=== PATIENT | female | born 1935 | race Caucasian/White ===

== ENCOUNTER 2021-06-17 11:05 | Emergency (ER) | payer OTHER ==
--- OUTSIDE RECORDS SUMMARY | 2021-06-17 11:07 | XMS REPORT | Continuity of Care Document ---
:1935 Author Organization [facility] t Address [address] [place] [address] Care Team Providers Name Role Phone PIA GONZALEZ Primary Care Physician Unavailable Tavia XIONG S Attending Clinician Erik PEREIRA Attending Clinician Unavailable Chi TAYLOR Attending Clinician CHI Attending Clinician Unavailable NITISH Attending Clinician Unavailable Abhishek MARR Attending Clinician ABHISHEK Attending Clinician Unavailable ABHISHEK Admitting Clinician Unavailable Payers Payer Name Policy Type Policy Number Effective Date Expiration Date S ource Problems Condition Condition Condition Status Onset Resolution Last Treating Co mments Source Name Details Category Date Date Treatment Clinician Date No known No known Disease Unive rs active active ity of problems problems [facility] Allergies, Adverse Reactions, Alerts Allergy Allergy Status Severity Reaction(s) Onset Inactive Treating Comm ents Source Name Type Date Date Clinician SULFA Drug Active High N/V 2020-0 Univers (SULFONA Class 4-05 ity of MIDE 00:00: [place] ANTIBIOT 00 Medical ICS) Branch Sulfa Propensi Active Nausea 2020-0 Univers (Sulfona ty to and/or 4-05 ity of mide adverse Vomiting 00:00: [place] Antibiot reaction 00 Medica l ics) s Branch NO KNOWN Drug Active Univers ALLERGIE Class ity of S [facility] Social History Social Habit Start Date Stop Date Quantity Comments Source Exposure to Not sure University SARS-CoV-2 [place] [facility] (event) Branch History SDOH University o f Alcohol Std [place] [facility] Drinks Branch History SDOH University o f Alcohol Binge [place] [facility] Tobacco use and 2020-07-15 2020-07-15 Never used Universit y of exposure 00:00:00 00:00:00 [facility] Alcohol intake 2020-07-152020-07-15 Lifetime University of 00:00:00 00:00:00 non-drinker [place] [facility] (finding) Branch History SDOH 2020-07-15 2020-07-15 1 Claude o f Alcohol Frequency 00:00:00 00:00:00 [facility] [place] Sex Assigned At [birth year] Universit y of 00:00:00 00:00:00 [facility] Branch Smoking Status Start Date Stop Date Source Unknown if ever smoked Universit y of [place] [facility] Never smoker [facility] Branch Medications Ordered Filled Start Stop Current Ordering Indication Dosage Frequency Signature Comments Components Source Medication Medication Date Date Medication? Clinician (SIG) Name Name triamcinolo 2020- No [id number] 80mg Univers ne 07-15 9100 ity of acetonide 23:15: 22:01 [place] (KENALOG) 00 :00 Medical injection Branch 80 mg triamcinolo 2020- No [id number] 80mg 80 mg, Univers ne 07-15 9100 Intra-jon ity of acetonide 23:15: 22:01 [facility] [place] (KENALOG) 00 :00 ONCE, 1 Medical injection dose, Mon Bran h 80 mg 07/15/20 at 1815, Routine HYDROcodone 2020- No 1{tbl} 1 tablet, Univers -acetaminop 07-09 Oral, ity of hen (NORCO 01:00: 00:07 ONCE, 1 Luis Armando as 5) 5-325 mg 00 :00 dose, Mon Med ical tablet 1 07/08/20 at Bran h tablet 1999, SHIVANI levothyroxi Yes 150ug Take 150 U nivers ne 150 mcg 5-08 mcg by ity of tablet 00:00: mouth [place] [address] every Medical morning. Branch levothyroxi Yes 150ug Take 150 U nivers ne 150 mcg 5-08 mcg by ity of tablet 00:00: mouth [place] 00 every Medical morning. Branch levothyroxi Yes 150ug Take 150 U nivers ne 150 mcg 5-08 mcg by ity of tablet 00:00: mouth [place] [address] every Medical morning. Branch levothyroxi Yes 150ug Take 150 U nivers ne 150 mcg 5-08 mcg by ity of tablet 00:00: mouth [place] 00 every Medical morning. Branch KCL 10 mEq Yes TAKE 1 Unive rs tablet 4-13 TABLET BY ity of 00:00: MOUTH [place] 00 EVERY Medical MORNING ON Branch EVEN DAYS KCL 10 mEq 2020-0 Yes TAKE 1 Unive rs tablet 4-13 TABLET BY ity of 00:00: MOUTH [place] 00 EVERY Medical MORNING ON Branch EVEN DAYS KCL 10 mEq 2020-0 Yes TAKE 1 Unive rs tablet 4-13 TABLET BY ity of 00:00: MOUTH [place] 00 EVERY Medical MORNING ON Branch EVEN DAYS KCL 10 mEq 2020-0 Yes TAKE 1 Unive rs tablet 4-13 TABLET BY ity of 00:00: MOUTH [place] 00 EVERY Medical MORNING ON Branch EVEN DAYS diazePAM 5 Yes TAKE 1 Unive rs mg tablet 3-26 TABLET BY ity o f 00:00: MOUTH [place] 00 DAILY IF Medical NEEDED FOR Branch ANXIETY TRESIBA Yes INJECT 20 Unive rs FLEXTOUCH 3-26 UNITS ity of U-200 200 00:00: UNDER THE Luis Armando as unit/mL (3 00 SKIN EVERY Med ical mL) InPn EVENING Branch diazePAM 5 Yes TAKE 1 Unive rs mg tablet 3-26 TABLET BY ity o f 00:00: MOUTH [place] 00 DAILY IF Medical NEEDED FOR Branch ANXIETY TRESIBA Yes INJECT 20 Unive rs FLEXTOUCH 3-26 UNITS ity of U-200 200 00:00: UNDER THE Luis Armando as unit/mL (3 00 SKIN EVERY Med ical mL) InPn EVENING Branch diazePAM 5 Yes TAKE 1 Unive rs mg tablet 3-26 TABLET BY ity o f 00:00: MOUTH [place] 00 DAILY IF Medical NEEDED FOR Branch ANXIETY TRESIBA Yes INJECT 20 Unive rs FLEXTOUCH 3-26 UNITS ity of U-200 200 00:00: UNDER THE Luis Armando as unit/mL (3 00 SKIN EVERY Med ical mL) InPn EVENING Branch diazePAM 5 Yes TAKE 1 Unive rs mg tablet 3-26 TABLET BY ity o f 00:00: MOUTH [place] 00 DAILY IF Medical NEEDED FOR Branch ANXIETY TRESIBA Yes INJECT 20 Unive rs FLEXTOUCH 3-26 UNITS ity of U-200 200 00:00: UNDER THE Luis Armando as unit/mL (3 00 SKIN EVERY Med ical mL) InPn EVENING Branch cefUROXime 2020-0 Yes 250mg Take 250 Un daryl 250 mg 3-25 mg by ity of tablet 00:00: mouth 2 (two) Medical times Branch daily. cefUROXime 2020-0 Yes 250mg Take 250 Un daryl 250 mg 3-25 mg by ity of tablet 00:00: mouth 2 (two) Medical times Branch daily. cefUROXime 2020-0 Yes 250mg Take 250 Un daryl 250 mg 3-25 mg by ity of tablet 00:00: mouth 2 (two) Medical times Branch daily. cefUROXime 2020-0 Yes 250mg Take 250 Un daryl 250 mg 3-25 mg by ity of tablet 00:00: mouth (two) Medical times Branch daily. metoprolol Yes TAKE 1 Unive rs tartrate 50 3-08 TABLET BY ity of mg tablet 00:00: MOUTH EVERY DAY Medical WITH MEALS Branch metoprolol 0 Yes TAKE 1 Unive rs tartrate 50 3-08 TABLET BY ity of mg tablet 00:00: MOUTH EVERY DAY Medical WITH MEALS Branch metoprolol 0 Yes TAKE 1 Unive rs tartrate 50 3-08 TABLET BY ity of mg tablet 00:00: MOUTH 00 EVERY DAY Medical WITH MEALS Branch metoprolol 0 Yes TAKE 1 Unive rs tartrate 50 3-08 TABLET BY ity of mg tablet 00:00: MOUTH EVERY DAY Medical WITH MEALS Branch meloxicam 2020-0 Yes [id number] 7.5mg Take 1 Univers 7.5 mg 4-05 tablet by ity of tablet 00:00: mouth once 00 daily as Medical needed for Branch Pain (scale 7-10). meloxicam 2020-0 Yes [id number] 7.5mg Take 1 Univers 7.5 mg 4-05 tablet by ity of tablet 00:00: mouth once 00 daily as Medical needed for Branch Pain (scale 7-10). meloxicam 2020-0 Yes [id number] 7.5mg Take 1 Univers 7.5 mg 4-05 tablet by ity of tablet 00:00: mouth once 00 daily as Medical needed for Branch Pain (scale 7-10). meloxicam 2020-0 Yes [id number] 7.5mg Take 1 Univers 7.5 mg 4-05 tablet by ity of tablet 00:00: mouth once [place] 00 daily as Medical needed for Branch Pain (scale 7-10). meloxicam 2020-0 Yes [id number] 7.5mg Take 1 Univers 7.5 mg 4-05 tablet by ity of tablet 00:00: mouth once [place] 00 daily as Medical needed for Branch Pain (scale 7-10). meloxicam 2020-0 Yes [id number] 7.5mg Take 1 Univers 7.5 mg 4-05 tablet by ity of tablet 00:00: mouth once [place] 00 daily as Medical needed for Branch Pain (scale 7-10). Vital Signs Vital Name Observation Time Observation Value Comments Source Systolic blood 2020-07-15 21:10:00 170 mm[facility]Hg[facility] 2020-07-15 21:10:00 61 [facility]Hg[facility] 2020-07-15 21:10:00 64 /min [facility] Body height 2020-07-15 21:02:00 160 cm [facility] Body weight 2020-07-15 21:02:00 70.308 kg [facility] BMI 2020-07-15 21:02:00 27.46 kg/m2 [facility] Systolic blood 2020-07-09 00:31:54 172 mm[Hg] Univer sity of [facility] Diastolic blood 2020-07-09 00:31:54 67 mm[Hg] Unive [facility] Heart rate 2020-07-09 00:31:54 63 /min [facility] Respiratory rate 2020-07-09 00:31:54 18 /min [facility] Oxygen saturation in 2020-07-09 00:31:54 95 /min [facility] Arterial blood by [facility] Pulse oximetry Branch Body temperature 2020-07-08 22:03:00 36.11 [facility] [place] [facility] Body height 2020-07-08 22:03:00 160 cm [facility] Body weight 2020-07-08 22:03:00 70.308 kg [facility] BMI 2020-07-08 22:03:00 27.46 kg/m2 [facility] Systolic blood 2019-06-04 23:55:00 153 mm[Hg] [facility]iver [facility] Diastolic blood 2019-06-04 23:55:00 60 mm[Hg] Unive rsity of [facility] Heart rate 2019-06-04 23:55:00 60 /min [facility] Body temperature 2019-06-04 23:55:00 36.33 Joanne [facility] [place] [facility] Respiratory rate 2019-06-04 23:55:00 17 /min [facility] Oxygen saturation in 2019-06-04 23:55:00 97 /min [facility] Arterial blood by [facility] Pulse oximetry Branch Body height 2019-06-04 22:22:00 160 cm [facility] Body weight 2019-06-04 22:22:00 70.308 kg [facility] BMI 2019-06-04 22:22:00 27.46 kg/m2 [facility] Procedures Procedure Date / Time Performed Performing Clinician [facility] e XR HIPS 3 VW 2020-07-08 23:25:46 Emil Mireles Claude o f [place] BILATERAL [facility] XR KNEE 3 VW RIGHT 2019-06-04 23:12:07 Abhishek [facility] XR HIPS 2 VW RIGHT 2019-06-04 23:11:49 Abhishek [facility] NOTICE OF PRIVACY 2019-06-04 22:09:24 Doctor Unassigned, No Univ [facility] PRACTICES Name [facility] Branch Encounters Start End Encounter Admission Attending Care Care Encounter Source Date/Time Date/Time Type Type Clinicians Facility Department ID 2020-07-31 2020-07-31 Telephone MARISSA Pereira [id number] Univers 00:00:00 00:00:00 [facility] [id number] it y of Surgical [id number] Luis Armando as Specialti [id number] Ia dical es 198 Branch [place] 2020-07-15 2020-07-15 Office MARISSA Pereira [id number] Univers 16:00:44 16:15:44 Visit [facility] [id number] it y of Surgical [id number] Luis Armando [facility] [id number] Me dical es 198 [facility] 2020-07-15 2020-07-15 [facility] [id number] Univers 15:45:00 15:45:00 [facility] 2020-07-08 2020-07-08 Emergency [facility] [id number] Univers 16:56:00 19:36:00 [facility] [id number] i khang [facility] [id number] [facility] [id number] [facility] 084 [place] 2020-07-08 2020-07-08 Emergency X [facility] ERT [id number] Univers 16:56:00 16:56:00 [facility] 2020-04-11 2020-04-11 Outpatient [facility] [id number] [place] 00:00:00 00:00:00 126 [facility] i 2020-03-14 2020-03-14 Outpatient [facility] [id number] [place] 00:00:00 00:00:00 984 [facility] i 2019-07-26 2019-07-26 Outpatient INCAVO, [facility] [id number] [place] 00:00:00 00:00:00 DAVID 749 Method i 2019-06-22 2019-06-22 Outpatient INCAVO, [facility] [id number] [place] 00:00:00 00:00:00 DAVID 067 Method i 2019-06-14 2019-06-14 Outpatient INCAVO, [facility] [id number] [place] 00:00:00 00:00:00 DAVID 392 Method i 2019-06-14 2019-06-14 Outpatient INCAVO, [facility] [id number] [place] 00:00:00 00:00:00 DAVID 374 Method i 2019-06-14 2019-06-14 Outpatient INCAVO, [facility] [id number] [place] 00:00:00 00:00:00 DAVID 386 Method i 2019-06-14 2019-06-14 Outpatient INCAVO, [facility] [id number] [place] 00:00:00 00:00:00 DAVID 779 Method i 2019-06-04 2019-06-04 Emergency [facility] [id number] Univers 17:15:03 19:10:00 Viry Meléndez [id number] i [facility] [id number] [facility] [id number] [facility] 084 Branch 2019-06-04 2019-06-04 Emergency X [facility] ERT [id number] Univers 17:15:03 19:10:00 VIRY huber [facility] Results This patient has no known results.
[2021-06-17 12:50] LABS: Absolute Lymphocytes (CBC) 1.8 K/uL (0.7-4.9); Hematocrit 36.6 % (36.0-45.0); Lymphocytes % 26.9 % (15.3-44.8); MPV 9.3 fL (7.6-11.3); RBC Red Blood Cell Count 3.94 M/uL (3.86-4.86)
[2021-06-17 13:02] LABS: Albumin 3.3 g/dL (3.4-5.0); Bilirubin Total 0.5 mg/dL (0.2-1.0); Protein, Total 6.9 g/dL (6.4-8.2)
[2021-06-17 13:08] LABS: Urine Bacteria <20 /HPF (<20); Urine RBC <5 /HPF (NONE SEEN)
--- NOTE | 2021-06-17 13:43 | RAD REPORT ---
EXAM DESCRIPTION: CT - Abdomen Pelvis W Contrast - 06/17/2021 1:22 pm CLINICAL HISTORY: right flank pain, abdominal pain, back pain, prior cholecystectomy COMPARISON: Renal Ultrasound-Complete dated 06/04/2020 TECHNIQUE: Biphasic, helical CT imaging of the abdomen and pelvis was performed following 100 ml non -ionic IV contrast. No oral contrast administered. All CT scans are performed using dose optimization technique as appropriate and may include automated exposure control or mA/KV adjustment according to patient size. FINDINGS: No suspicious findings in the lung bases. No cardiomegaly or pericardial effusion. The liver, spleen, and pancreas show no suspicious findings. Portal vein enhances normally. Cholecyst ectomy clips are present. No abnormal biliary tree dilatation. Symmetric renal function is seen with no hydronephrosis or suspicious renal mass. No obstructing or n onobstructing calculi. No pyelonephritis or acute parenchymal process. No bladder abnormalities. No a drenal abnormalities. Uterus is absent or atrophic. Ovaries are atrophic. Adnexal benign calcificatio ns are present. Numerous pelvic floor phleboliths are present. Pelvic floor laxity is seen. No dilated bowel loops or bowel wall thickening. No free air, free fluid or inflammatory stranding. No mass or bulky lymphadenopathy. A right supraumbilical 4.5 centimeter fat only abdominal wall janeth ias present. Neck is 2.7 cm in diameter. There is minimal fat only right inguinal region hernia as we ll. No congested or edematous fat. No acute compression fracture or pathologic bone process identified. T12 vertebral body hemangioma is present. There is a prominent left convex degenerative scoliotic curvature with the apex at the L1 l evel. Approximately 5 mm left lateral subluxation of L3 on L4 and approximately 4 mm lateral subluxat ion L3 on L4. Large spurs extend from the endplates at multiple levels. No central spinal stenosis co nfirmed. Foraminal stenosis changes are present in the upper lumbar spine along the right-side concav e contour. Bilateral foraminal stenosis present at L3-4 and L4-5. No pars defects are seen. Arterial calcifications are present with no acute vascular finding seen. IMPRESSION: Contrast enhanced CT abdomen and pelvis showing no acute or emergent finding. No GI, or COLLATOR HAND significant finding identifiable. Cholecystectomy clips are present with biliary paul e in normal range. 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 No acute or pathologic bone proce ss seen.
--- NOTE | 2021-06-17 14:44 | EDPHYS ---
Physician Documentation [facility] Name: Pamela Machado Age: 86 yrs Sex: Female : 1935 Arrival Date: 06/17/2021 Time: 11:09 Bed 13 Private MD: Carlos Guzman T ED Physician Indra Christiansen HPI: 06/17 12:26 This 86 yrs old Female presents to ER via Ambulatory with complaints of Back Pain, pm1 Urinary Problem. 12:26 The symptoms are located in the right low back. Onset: The symptoms/episode pm1 began/occurred January. The pain does not radiate. Associated signs and symptoms: Pertinent negatives: abdominal pain, constipation, dysuria, fever, nausea, numbness, tingling, vomiting. The problem was sustained Patient has seen her PCP on multiple occasions for the same pain and has been told that she possibly has UTI. Has been given antibiotics at those visits without improvement in symptoms. Modifying factors: The patient symptoms are alleviated by nothing, the patient symptoms are aggravated by nothing. Severity of symptoms: in the emergency department the symptoms are unchanged. The patient has experienced similar episodes in the past, several times. The patient has not recently seen a physician. Historical: - Allergies: 12:18 Codeine; iw 12:18 Demerol; iw 12:18 Novocain; iw 12:18 zylocain; iw 12:18 Sulfa (Sulfonamide Antibiotics); iw - Home Meds: 12:18 Synthroid 150 mcg Oral tab 1 tab once daily [Active]; Bumex 0.5 mg Oral tab 1 tab 2 iw times per day [Active]; metoprolol tartrate 50 mg Oral tab 1 tab once daily [Active]; Klor-Con 10 10 mEq Oral TbER 1 tab once daily [Active]; Lantus U-100 Insulin 100 unit/mL Sub-Q crtg daily [Active]; aspirin 81 mg Oral tab daily [Active]; - PMHx: 12:18 "heart rythm problem"; a fib; Diabetes - IDDM; Hypothyroidism; iw - PSHx: 12:18 hysterectomy; bunions; hernia; foot; knee; iw - Immunization history:: Adult Immunizations up to date. - Social history:: Smoking status: Patient denies any tobacco usage or history of. ROS: 12:26 Constitutional: Negative for fever, chills, and weight loss, Cardiovascular: Negative pm1 for chest pain, palpitations, and edema, Respiratory: Negative for shortness of breath, cough, wheezing, and pleuritic chest pain, Abdomen/GI: Negative for abdominal pain, nausea, vomiting, diarrhea, and constipation. 12:26 : Negative for injury, bleeding, discharge, and swelling, MS/Extremity: Negative for injury and deformity, Skin: Negative for injury, rash, and discoloration, Neuro: Negative for headache, weakness, numbness, tingling, and seizure. 12:26 Back: Positive for of the right low back pain. 12:26 All other systems are negative. Exam: 12:26 Constitutional: This is a well developed, well nourished patient who is awake, alert, pm1 and in no acute distress. Head/Face: Normocephalic, atraumatic. 12:26 Skin: Warm, dry with normal turgor. Normal color with no rashes, no lesions, and no evidence of cellulitis. MS/ Extremity: Pulses equal, no cyanosis. Neurovascular intact. Full, normal range of motion. 12:26 Cardiovascular: Exam negative for acute changes, Rate: normal, Rhythm: regular, Pulses: no pulse deficits are appreciated, Heart sounds: normal. 12:26 Respiratory: Exam negative for acute changes, respiratory distress, shortness of breath, Breath sounds: are clear throughout. 12:26 Abdomen/GI: Exam negative for acute changes, Inspection: abdomen appears normal, Palpation: abdomen is soft and non-tender, in all quadrants. 12:26 Back: pain, that is mild, of the right low back, vertebral tenderness, is not appreciated. 12:26 Neuro: Exam negative for acute changes, Orientation: is normal, Mentation: is normal, Motor: is normal, moves all fours. Vital Signs: 12:17 BP 189 / 98; Pulse 70; Resp 18; Temp 98.0; Pulse Ox 95% on R/A; iw MDM: 12:26 Patient medically screened. pm1 14:41 Data reviewed: vital signs. Data interpreted: Pulse oximetry: on room air is 95 %. pm1 Interpretation: normal. Counseling: I had a detailed discussion with the patient and/or guardian regarding: the historical points, exam findings, and any diagnostic results supporting the discharge/admit diagnosis, lab results, radiology results, the need for outpatient follow up, to return to the emergency department if symptoms worsen or persist or if there are any questions or concerns that arise at home. 14:41 ED course: Discussed at length with patient plan of care. Not convincing UTI present pm1 and patient would like to wait for urine culture prior to ABX therapy. Suspect back pain is related to scoliosis and degenerative changes since her pain has been going on since January. Patient has tramadol at home. Patient does not want any pain medications in the ER. 06/17 12:25 Order name: CBC with Diff; Complete Time: 12:57 pm1 06/17 12:25 Order name: CMP; Complete Time: 14:22 pm1 06/17 12:25 Order name: Lipase; Complete Time: 14:22 pm1 06/17 12:25 Order name: Urine Microscopic Only; Complete Time: 14:22 pm1 06/17 12:27 Order name: Abdomen ; Complete Time: 14:22 EDMI 06/17 13:11 Order name: Urine Culture EDMI 06/17 12:25 Order name: IV Saline Lock; Complete Time: 15:59 pm1 06/17 12:25 Order name: Labs collected and sent; Complete Time: 15:59 pm1 06/17 12:25 Order name: Urine Dipstick-Ancillary (obtain specimen); Complete Time: 15:59 pm1 Administered Medications: 14:59 Drug: NS 0.9% 500 ml Route: IV; Rate: bolus; Site: right antecubital; ll1 15:58 Follow up: Response: No adverse reaction; IV Status: Completed infusion; IV Intake: ll1 500ml Disposition Summary: 06/17/21 14:43 Discharge Ordered Location: Home pm1 Problem: new pm1 Symptoms: have improved pm1 Condition: Stable pm1 Diagnosis - Low back pain pm1 Followup: pm1 - With: Emergency Department - When: As needed - Reason: Worsening of condition Followup: pm1 - With: Private Physician - When: 2 - 3 days - Reason: Recheck today's complaints, Continuance of care, Re-evaluation by your physician Discharge Instructions: - Discharge Summary Sheet pm1 - Chronic Back Pain pm1 Forms: - Medication Reconciliation Form pm1 - Thank You Letter pm1 - Antibiotic Education pm1 - Prescription Opioid Use pm1 Addendum: 06/19/2021 18:36 Co-signature as Attending Physician, Indra wiley a2 Signatures: Dispatcher [employer] Chetna Vasques, MARY ALICE RN iw Moises Coleman, CHOKE REAMER CHOKE REAMER pm1 Indra Christiansen MD MD ma2 Andrew Zazueta RN RN ll1
--- NOTE | 2021-06-17 14:44 | ER ---
Nurse's Notes [facility] Name: Pamela Machado Age: 86 yrs Sex: Female : 1935 Arrival Date: 06/17/2021 Time: 11:09 Bed 13 Private MD: Carlos Guzman T Diagnosis: Low back pain Presentation: 06/17 12:17 Chief complaint: Patient states: has had pain to back and was told she had a kidney iw infection. Coronavirus screen: At this time, the client does not indicate any symptoms associated with coronavirus-19. Ebola Screen: Patient negative for fever greater than or equal to 101.5 degrees Fahrenheit, and additional compatible Ebola Virus Disease symptoms Patient denies exposure to infectious person. Patient denies travel to an Ebola-affected area in the 21 days before illness onset. No symptoms or risks identified at this time. Initial Sepsis Screen: Does the patient meet any 2 criteria? No. Patient's initial sepsis screen is negative. Does the patient have a suspected source of infection? No. Patient's initial sepsis screen is negative. Risk Assessment: Do you want to hurt yourself or someone else? Patient reports no desire to harm self or others. 12:17 Method Of Arrival: Ambulatory iw 12:17 Acuity: ZAC 3 iw 15:58 Onset of symptoms is unknown. ll1 Historical: - Allergies: 12:18 Codeine; iw 12:18 Demerol; iw 12:18 Novocain; iw 12:18 zylocain; iw 12:18 Sulfa (Sulfonamide Antibiotics); iw - Home Meds: 12:18 Synthroid 150 mcg Oral tab 1 tab once daily [Active]; Bumex 0.5 mg Oral tab 1 tab 2 iw times per day [Active]; metoprolol tartrate 50 mg Oral tab 1 tab once daily [Active]; Klor-Con 10 10 mEq Oral TbER 1 tab once daily [Active]; Lantus U-100 Insulin 100 unit/mL Sub-Q crtg daily [Active]; aspirin 81 mg Oral tab daily [Active]; - PMHx: 12:18 "heart rythm problem"; a fib; Diabetes - IDDM; Hypothyroidism; iw - PSHx: 12:18 hysterectomy; bunions; hernia; foot; knee; iw - Immunization history:: Adult Immunizations up to date. - Social history:: Smoking status: Patient denies any tobacco usage or history of. Screenin:57 Abuse screen: Denies threats or abuse. Nutritional screening: No deficits noted. ll1 Tuberculosis screening: No symptoms or risk factors identified. Fall Risk IV access (20 points). Gait- Weak (10 pts.). Total Siu Fall Scale indicates Low Risk Score (25-44 pts). Fall prevention measures have been instituted. Side Rails Up X 2 Frequent Obs/Assesments occuring As available Patient and Family Educated on Fall Prevention Program and strategies. Assessment: 14:00 General: Appears uncomfortable, Behavior is cooperative, appropriate for age. Pain: ll1 Complains of pain in back Quality of pain is described as aching, crampy. Neuro: No deficits noted. Level of Consciousness is awake. Vital Signs: 12:17 BP 189 / 98; Pulse 70; Resp 18; Temp 98.0; Pulse Ox 95% on R/A; iw ED Course: 11:09 Patient arrived in ED. mr 11:09 Carlos Guzman MD is Private Physician. mr 12:18 Triage completed. iw 12:20 Arm band placed on. iw 12:22 Moises Coleman NP is PHCP. pm1 12:22 Indra Christiansen MD is Attending Physician. pm1 12:40 Initial lab(s) drawn, by me, sent to lab. Urine collected: clean catch specimen, clear. kj1 Inserted saline lock: 20 gauge in right antecubital area, using aseptic technique. Blood collected. 13:24 Abdomen In Process Unspecified. EDMS 13:52 Andrew Zazueta RN is Primary Nurse. ll1 13:53 Patient placed in an exam room, on a stretcher. ll1 15:57 Patient has correct armband on for positive identification. Bed in low position. Call ll1 light in reach. Side rails up X 1. Cardiac monitoring not applicable on this patient. 15:57 No provider procedures requiring assistance completed. IV discontinued, intact, ll1 bleeding controlled, No redness/swelling at site. Pressure dressing applied. Administered Medications: 14:59 Drug: NS 0.9% 500 ml Route: IV; Rate: bolus; Site: right antecubital; ll1 15:58 Follow up: Response: No adverse reaction; IV Status: Completed infusion; IV Intake: ll1 500ml Intake: 15:58 IV: 500ml; Total: 500ml. ll1 Outcome: 14:43 Discharge ordered by . pm1 15:58 Discharged to home ambulatory. ll1 15:58 Condition: stable 15:58 Discharge instructions given to patient, family, Instructed on discharge instructions, follow up and referral plans. Demonstrated understanding of instructions, follow-up care. 15:59 Patient left the ED. ll1 Signatures: Dispatcher [employer] Corina Yee Irene, RN RN iw Moises Coleman, [employer]LL[employer]UR[employer] ATTENDANT pm1 Ruba Hughes1 Andrew Zazueta RN RN ll1 Corrections: (The following items were deleted from the chart) 12:18 12:17 Chief complaint: Patient states: has had pain to back and was told she had a iw kidney infection iw 12:18 12:17 Pulse 70bpm; Resp 18bpm; Pulse Ox 95% RA; Temp 98.0F; iw iw
[2021-06-17] MEDS ORDERED: NA CHLORIDE 0.9% 500 ML ONE (14:59)
[2021-06-17 19:43] VITALS: BP 189/98; TEMP 98; O2SAT 95
== END 2021-06-17 15:59 | disposition home or self-care (01) ==
LOC: ER 11:05
DX: M54.50 Low back pain, unspecified (principal); E11.9 Type 2 diabetes mellitus without complications; I48.91 Unspecified atrial fibrillation; Z79.82 Long term (current) use of aspirin; Z79.4 Long term (current) use of insulin; Z08 Encounter for follow-up examination after completed treatment for malignant neoplasm; Z88.2 Allergy status to sulfonamides; Z88.5 Allergy status to narcotic agent
CPT/HCPCS: 87088; 85025; 87086; 36415; 81015; 83690; 80053; 74177; Q9967; J7040; 96360; 99284

== ENCOUNTER 2022-02-10 08:57 | Emergency (ER) | payer OTHER ==
--- OUTSIDE RECORDS SUMMARY | 2022-02-10 09:00 | XMS REPORT | Continuity of Care Document ---
:1935 Author Organization [facility] t Address [address] [place] [address] Care Team Providers Name Role Phone CRUZ GONZALEZ Primary Care Physician Unavailable William Banuelos Attending Clinician WILLIAM PEREIRA Attending Clinician Unavailable Elizabeth Kidd Attending Clinician ELIZABETH BAKER Attending Clinician Unavailable DAVID TALBERT Attending Clinician Unavailable Viry Robertson PA-C Attending Clinician VIRY ROBERTSON Attending Clinician Unavailable VIRY ROBERTSON Admitting Clinician Unavailable Payers Payer Name Policy Type Policy Number Effective Date Expiration Date S ource Problems Condition Condition Condition Status Onset Resolution Last Treating Co mments Source Name Details Category Date Date Treatment Clinician Date Arthritis Arthritis Disease Active Overview: Methodi of right of right 5-[address] hip hip 00:00: g of this [facility] 00 note l might be different from the original. Added automatic ally from request for surgery [id number] No known No known Disease Unive rs active active ity of problems problems [facility] Branch Allergies, Adverse Reactions, Alerts Allergy Allergy Status Severity Reaction(s) Onset Inactive Treating Comm ents Source Name Type Date Date Clinician Sulfa Propensi Active Unknown Methodi (Sulfona ty to Reaction 5-27 st mide adverse 00:00: Hospita Antibiot reaction 00 l ics) s to drug SULFA Drug Active High N/V Univers (SULFONA Class 4-05 ity of MIDE 00:00: [place] ANTIBIOT 00 Medical ICS) Branch Sulfa Propensi Active Nausea Univers (Sulfona ty to and/or 4-05 ity of mide adverse Vomiting 00:00: [place] Antibiot reaction 00 Medica l ics) s Branch NO KNOWN Drug Active Univers ALLERGIE Class ity of S [place] [facility] [place] Social History Social Habit Start Date Stop Date Quantity Comments Source Exposure to Not sure [place] of SARS-CoV-2 [place] [facility] (event) Branch History SDOH University o f Alcohol Std [place] [facility] Drinks Branch History SDAR University o f Alcohol Binge [place] [facility] Tobacco use and 2020-07-15 2020-07-15 Never used Universit y of exposure 00:00:00 00:00:00 [place] [facility] History SDOH 2020-07-15 2020-07-15 1 University o f Alcohol Frequency 00:00:00 00:00:00 [place] M edical [facility] Alcohol intake 2019-07-26 2019-07-26 Ex-drinker [facility] 00:00:00 00:00:00 (finding) Sex Ass[birth year] [facility] 00:00:00 00:00:00 Smoking Status Start Date Stop Date Source Unknown if ever smoked [facility]it y [facility] [place] [facility] [place] Never smoker [facility] Medications Ordered Filled Start Stop Current Ordering Indication Dosage Frequency Signature Comments Components Source Medication Medication Date Date Medication? Clinician (SIG) Name Name triamcinolo 2020- No [id number] 80mg Univers ne 07-15 9100 ity of acetonide 23:15: 22:01 [place] (KENALOG) 00 :00 Medical injection Branch 80 mg triamcinolo 2020- No [id number] 80mg 80 mg, Univers ne 07-15 9100 Intra-jon ity of acetonide 23:15: 22:01 justice [place] (KENALOG) 00 :00 ONCE, 1 Medical injection dose, Mon Branc h 80 mg 07/15/20 at 1815, Routine HYDROcodone 2020- No 1{tbl} 1 tablet, Univers -acetaminop 07-09 Oral, ity of hen (NORCO 01:00: 00:07 ONCE, 1 Luis Armando as 5) 5-325 mg 00 :00 dose, Mon Med ical tablet 1 07/08/[address] [facility] h tablet 1999, SHIVANI levothyroxi Yes 150ug Take 150 U nivers ne 150 mcg 5-08 mcg by ity of tablet 00:00: mouth [place] 00 every Medical morning. Branch levothyroxi 2020-0 Yes 150ug Take 150 U nivers ne 150 mcg 5-08 mcg by ity of tablet 00:00: mouth [place] 00 every Medical morning. Branch levothyroxi 0 Yes 150ug Take 150 U nivers ne 150 mcg 5-08 mcg by ity of tablet 00:00: mouth [place] 00 every Medical morning. Branch levothyroxi Yes 150ug Take 150 U nivers ne 150 mcg 5-08 mcg by ity of tablet 00:00: mouth [place] 00 every Medical morning. Branch KCL 10 mEq 2020-0 Yes TAKE 1 [...] MORNING ON Branch EVEN DAYS diazePAM 5 2020-0 Yes TAKE 1 Unive rs mg tablet 3-26 TABLET BY ity o f 00:00: MOUTH [place] 00 DAILY IF Medical NEEDED FOR Branch ANXIETY TRESIBA Yes INJECT 20 Unive rs FLEXTOUCH 3-26 UNITS ity of U-200 200 00:00: UNDER THE Luis Armando as unit/mL (3 00 SKIN EVERY Med ical mL) InPn EVENING Branch diazePAM 5 2020-0 Yes TAKE 1 Unive rs mg tablet [...] Med ical mL) InPn EVENING Branch cefUROXime Yes 250mg Take 250 Un daryl 250 mg 3-25 mg by ity of tablet 00:00: mouth (two) Medical times Branch daily. cefUROXime Yes 250mg Take 250 Un daryl 250 mg 3-25 mg by ity of tablet 00:00: mouth (two) Medical times Branch daily. cefUROXime Yes 250mg Take 250 Un daryl 250 mg 3-25 mg by ity of tablet 00:00: mouth (two) Medical times Branch daily. cefUROXime Yes 250mg Take 250 Un daryl 250 mg 3-25 mg by ity of tablet 00:00: mouth (two) Medical times Branch daily. metoprolol Yes TAKE 1 Unive rs tartrate 50 3-08 TABLET BY ity of mg tablet 00:00: MOUTH 00 EVERY DAY Medical WITH MEALS Branch metoprolol Yes TAKE 1 Unive rs tartrate 50 3-08 TABLET BY ity of mg tablet 00:00: MOUTH 00 EVERY DAY Medical WITH MEALS Branch metoprolol Yes TAKE 1 Unive rs tartrate 50 3-08 TABLET BY ity of mg tablet 00:00: MOUTH 00 EVERY DAY Medical WITH MEALS Branch metoprolol Yes TAKE 1 Unive rs tartrate 50 3-08 TABLET BY ity of mg tablet 00:00: MOUTH 00 EVERY DAY Medical WITH MEALS Branch No known No No known Metho di medications 5-[address] 11:47: s Hospita 11 l meloxicam 2020-0 Yes [id number] 7.5mg Take 1 Univers 7.5 mg 4-05 tablet by ity of tablet 00:00: mouth once [place] 00 daily as Medical needed for Branch Pain (scale 7-10). meloxicam 2020-0 Yes [id number] 7.5mg Take 1 Univers 7.5 mg 4-05 tablet by ity of tablet 00:00: mouth once [place] 00 daily as Medical needed for Branch Pain (scale 7-10). meloxicam 2020-0 Yes [id number] 7.5mg Take 1 Univers 7.5 mg 4-05 tablet by ity of tablet 00:00: mouth once [place] 00 daily as Medical needed for Branch Pain (scale 7-10). meloxicam 2020-0 Yes [id number] 7.5mg Take 1 Univers 7.5 mg 4-05 tablet by ity of tablet 00:00: mouth once [place] 00 daily as Medical needed for Branch Pain (scale 7-10). meloxicam 2020-0 Yes [id number] 7.5mg Take 1 Univers 7.5 mg 4-05 tablet by ity of tablet 00:00: mouth once [place] 00 daily as Medical needed for Branch Pain (scale 7-10). meloxicam 2020-0 Yes [id number] 7.5mg Take 1 Univers 7.5 mg 4-05 tablet by ity of tablet 00:00: mouth once [place] 00 daily as Medical needed for Branch Pain (scale 7-10). Immunizations Ordered Immunization Filled Immunization Date Status Commen ts [facility] Completed Methodis t MRNA VACCINATION 00:00:00 [facility] COVID-19 2020-03-14 Completed Methodis t MRNA VACCINATION 00:00:00 Hospital Vital Signs Vital Name Observation Time Observation Value Comments Source Systolic blood 2020-07-15 21:10:00 170 mm[Hg] Univer sity of [facility] Diastolic blood 2020-07-15 21:10:00 61 mm[Hg] Unive rsity of [facility] Heart rate 2020-07-15 21:10:00 64 /min Universi ty of [facility] Body height 2020-07-15 21:02:00 160 cm Universi ty of [place] [facility] Body weight 2020-07-15 21:02:00 70.308 kg Universi ty of [place] [facility] BMI 2020-07-15 21:02:00 27.46 kg/m2 Universi ty [facility] [place] [facility] Systolic blood 2020-07-09 00:31:54 172 mm[Hg] Univer sity of pressure [facility] Diastolic blood 2020-07-09 00:31:54 67 mm[Hg] Unive rsity of pressure [place] [facility] Heart rate 2020-07-09 00:31:54 63 /min Universi ty of [place] [facility] Respiratory rate 2020-07-09 00:31:54 18 /min Univ ersity of [facility] Oxygen saturation in 2020-07-09 00:31:54 95 /min University of Arterial blood by [facility] Pulse oximetry Branch Body temperature 2020-07-08 22:03:00 36.11 Joanne Univ ersity of [facility] Body height 2020-07-08 22:03:00 160 cm Universi ty of [place] [facility] Body weight 2020-07-08 22:03:00 70.308 kg Universi ty of [place] [facility] BMI 2020-07-08 22:03:00 27.46 kg/m2 Universi ty [facility] [place] [facility] Systolic blood 2019-06-04 23:55:00 153 mm[Hg] Univer sity of pressure [place] [facility] Diastolic blood 2019-06-04 23:55:00 60 mm[Hg] Unive rsity of pressure [place] [facility] Heart rate 2019-06-04 23:55:00 60 /min Universi ty of [place] [facility] Body temperature 2019-06-04 23:55:00 36.33 Joanne Univ ersity of [place] [facility] Respiratory rate 2019-06-04 23:55:00 17 /min Univ ersity of [place] [facility] Oxygen saturation in 2019-06-04 23:55:00 97 /min University of Arterial blood by [place] DeYapa jose Pulse oximetry Branch Body height 2019-06-04 22:22:00 160 cm Universi ty of [place] [facility] Body weight 2019-06-04 22:22:00 70.308 kg Universi ty [facility] [place] [facility] BMI 2019-06-04 22:22:00 27.46 kg/m2 [facility] ty [facility] [place] [facility] Procedures Procedure Date / Time Performed Performing Clinician Jose Armando e XR HIPS 3 VW 2020-07-08 23:25:46 Elizabeth Baker [place] [facility] [place] BILATERAL [facility] Branch XR KNEE 3 VW RIGHT 2019-06-04 23:12:07 Viry Robertson [facility] XR HIPS 2 VW RIGHT 2019-06-04 23:11:49 Abhishek [facility] NOTICE OF PRIVACY 2019-06-04 22:09:24 Doctor Unassigned, No [facility] PRACTICES Name [facility] Plan of Care Planned Activity Planned Date Details Comments Source Future Scheduled 2022-01-02 HEPATITIS B VACCINES Met [facility] Test 13:55:13 (1 of 3 - 3-dose series) [code = HEPATITIS B VACCINES (1 of 3 - 3-dose series)] Future Scheduled 2022-01-02 SHINGLES VACCINES (1 Met [facility] Test 13:55:13 of 2) [code = SHINGLES VACCINES (1 of 2)] Future Scheduled 2022-01-02 65+ PNEUMOCOCCAL [facility] Test 13:55:13 VACCINE (1 - PCV) [code = 65+ PNEUMOCOCCAL VACCINE (1 - PCV)] Future Scheduled 2022-01-02 COVID-19 VACCINE (3 - Me [facility] Test 13:55:13 Booster for Moderna series) [code = COVID-19 VACCINE (3 - Booster for Moderna series)] Future Scheduled 2022-01-02 INFLUENZA VACCINE Method is Hospital Test 13:55:13 [code = INFLUENZA VACCINE] Encounters Start End Encounter Admission Attending Care Care Encounter Source Date/Time Date/Time Type Type Clinicians Facility Department ID 2020-07-31 2020-07-31 Telephone MARISSA Pereira [id number] Univers 00:00:00 00:00:00 [employer] [id number] it y of Surgical [id number] Luis Armando as Specialti [phone] In dical [address] 2020-07-15 2020-07-15 Office MARISSA Pereira [id number] Univers 16:00:44 16:15:44 Visit [facility] [employer] [id number] it y of Surgical [id number] Luis Armando as [facility] [id number] In dical es [address] [place] 2020-07-15 2020-07-[address] [facility] [id number] Univers 15:45:00 15:45:00 [facility] 2020-07-08 2020-07-08 Emergency [facility] [id number] Univers 16:56:00 19:36:00 Elizabeth [place] [id number] i khang [facility] [id number] [place] [id number] [facility] 084 Branch 2020-07-08 2020-07-08 Emergency X SAMUEL, [facility] ERT [id number] Univers 16:56:00 16:56:00 ELIZABETH [facility] 2020-04-11 2020-04-11 Outpatient [facility] [id number] [place] 00:00:00 00:00:00 126 Method i 2020-03-14 2020-03-14 Outpatient [facility] [id number] [place] 00:00:00 00:00:00 984 Method i 2019-07-26 2019-07-26 Outpatient INCAVO, [facility] [id number] [place] 00:00:00 00:00:00 DAVID 749 Method i 2019-06-22 2019-06-22 Outpatient INCAVO, [facility] [id number] [place] 00:00:00 00:00:00 DAVID 067 Method i 2019-06-14 2019-06-14 Outpatient INCAVO, [facility] [id number] [place] 00:00:00 00:00:00 DAVID 374 Method i 2019-06-14 2019-06-14 Outpatient INCAVO, [facility] [id number] [place] 00:00:00 00:00:00 DAVID 386 Method i 2019-06-14 2019-06-14 Outpatient INCAVO, [facility] [id number] [place] 00:00:00 00:00:00 DAVID 392 Method i 2019-06-14 2019-06-14 Outpatient INCAVO, [facility] [id number] [place] 00:00:00 00:00:00 DAVID [address] 2019-06-04 2019-06-04 Emergency [facility] [id number] Univers 17:15:03 19:10:00 Viry Meléndez [id number] i [facility] [id number] [facility] [id number] [facility] 084 Branch 2019-06-04 2019-06-04 Emergency [facility] [id number] [facility] 17:15:03 19:10:00 VIRY huber [facility] Results This patient has no known results.
--- NOTE | 2022-02-10 10:10 | RAD REPORT ---
EXAM DESCRIPTION: CT - Head Brain Wo Cont - 02/10/2022 9:53 am CLINICAL HISTORY: Mental status change, persistent or worsening COMPARISON: Head Brain Wo Cont dated 07/15/2016 TECHNIQUE: Axial 5 mm thick images of the head were obtained without IV contrast. All CT scans are performed using dose optimization technique as appropriate and may include automated exposure control or mA/KV adjustment according to patient size. FINDINGS: No intracranial hemorrhage, mass, edema or shift of mid-line structures. No acute infarcti on changes seen. No cortical edema or sulcal effacement. Mild to moderate chronic ischemic change see n in the cerebral white matter. Atrophy changes are present showing a mild progression from the 2017 comparison. Ventricles have enlarged since prior imaging and may be slightly out of proportion for th e amount of volume loss. Correlation is needed with any clinical findings of normal pressure hydrocep halus. Physiologic and dense arterial tree calcifications are present. Mastoid air cells are clear. There is complete opacification of the right maxillary sinus with centra lly positioned inspissated mucus. Sinus diaz are thickened. Remaining paranasal sinuses are clear. No globe or orbital content abnormality seen. No acute bony findings. IMPRESSION: No mass, hemorrhage or acute intracranial finding identifiable. Atrophy and chronic ischemic changes are present, progressive from 2017. Ventriculomegaly appears more progressive than the volume loss. Correlation is needed with any exam f indings of normal pressure hydrocephalus. Chronic right maxillary sinusitis.
[2022-02-10 10:17] LABS: Absolute Lymphocytes (CBC) 1.6 K/uL (0.7-4.9); Hematocrit 40.3 % (36.0-45.0); Lymphocytes % 29.4 % (15.3-44.8); MCV 93.7 fL (80-100); MPV 8.6 fL (7.6-11.3)
--- NOTE | 2022-02-10 10:26 | RAD REPORT ---
EXAM DESCRIPTION: RAD - Chest Single View - 02/10/2022 10:16 am CLINICAL HISTORY: ams, history of AFib, diabetes COMPARISON: Portable 01/11/2017, portable chest April 2009 TECHNIQUE: AP portable chest image was obtained 02/10/2022 10:16 am . FINDINGS: No diffuse pulmonary edema is present. No acute infiltrate is seen. Small nodular focus in the mid right lung field matches prior imaging. No suspicious lung parenchymal mass. No failure or v olume overload. Heart and vasculature are normal. No measurable pleural effusion and no pneumothorax. No acute bony a bnormality seen. No acute aortic findings suspected. IMPRESSION: No acute cardiopulmonary process. Chest findings are not significantly different from prior imaging.
[2022-02-10 10:36] LABS: Albumin 3.4 g/dL (3.4-5.0); Bilirubin Total 0.6 mg/dL (0.2-1.0); Potassium 3.8 mmol/L (3.5-5.1)
[2022-02-10 10:43] LABS: Urine Blood Negative (Negative); Urine Glucose Negative (Negative); Urine Protein Negative (Negative); Urine Specific Gravity 1.015 (1.005-1.030); Urine pH 5.5 (5.0-7.0)
[2022-02-10 10:58] LABS: Specific Gravity 1.009 (1.005-1.030); Urine Bilirubin NEGATIVE (Negative); Urine Blood Negative (Negative); Urine Clarity Clear (Clear); Urine Color Colorless (Yellow); Urine Glucose NEGATIVE (Negative); Urine Protein NEGATIVE (Negative); Urine Urobilinogen Normal (Normal)
--- NOTE | 2022-02-10 11:46 | ER ---
Nurse's Notes [facility] Name: Pamela Machado Age: 86 yrs Sex: Female : 1935 Arrival Date: 02/10/2022 Time: 09:02 Bed 4 Private MD: Diagnosis: Other visual disturbances;Auditory hallucinations;Chronic kidney disease, unspecified Presentation: 02/10 09:29 Chief complaint: Patient states: i was seeing colors movin on the diaz; started about jh5 8 last night before bed. This morning I was hearing like a [employer] band playing and I thought it was but it wasn't him. I been seeing colors move for several years, but not too long. Coronavirus screen: Vaccine status: Patient reports receiving the 2nd dose of the covid vaccine. Client denies travel out of the [place] in the last 14 days. Ebola Screen: Patient negative for fever greater than or equal to 101.5 degrees Fahrenheit, and additional compatible Ebola Virus Disease symptoms Patient denies exposure to infectious person. Patient denies travel to an Ebola-affected area in the 21 days before illness onset. Initial Sepsis Screen: Does the patient meet any 2 criteria? No. Patient's initial sepsis screen is negative. Does the patient have a suspected source of infection? No. Patient's initial sepsis screen is negative. Risk Assessment: Do you want to hurt yourself or someone else? Patient reports no desire to harm self or others. 09:29 Method Of Arrival: Ambulatory jh5 09:29 Acuity: ZAC 3 jh5 11:07 Onset of symptoms is unknown. mb9 Triage Assessment: 09:33 General: Appears in no apparent distress. Behavior is calm, cooperative. Pain: Denies jh5 pain. Historical: - Allergies: 09:33 Codeine; jh5 09:33 Demerol; jh5 09:33 Novocain; jh5 09:33 Sulfa (Sulfonamide Antibiotics); jh5 09:33 zylocain; jh5 - PMHx: 09:33 "heart rythm problem"; a fib; Diabetes - IDDM; Hypothyroidism; jh5 - PSHx: 09:33 bunions; knee; hysterectomy; hernia; foot; jh5 - Immunization history:: Adult Immunizations up to date. - Social history:: Smoking status: Patient denies any tobacco usage or history of. Screenin:06 Abuse screen: Denies threats or abuse. Nutritional screening: No deficits noted. mb9 Tuberculosis screening: No symptoms or risk factors identified. Fall Risk No fall in past 12 months (0 pts). Assessment: 09:35 General: Appears in no apparent distress. comfortable, Behavior is calm, cooperative. mb9 Pain: Denies pain. Neuro: Vela Agitation-Sedation Scale (RASS): 0 - Alert and Calm Level of Consciousness is awake, alert, obeys commands, Oriented to person, place, time, situation, Appropriate for age Reports having visual disturbances that have been occuring on and off for the past few years. Pt states "I'm seeing colors and shapes on the curtains". Cardiovascular: Heart tones S1 S2 present Rhythm is sinus bradycardia. Respiratory: Airway is patent Respiratory effort is even, unlabored, Respiratory pattern is regular, symmetrical, Breath sounds are clear bilaterally. 09:35 GI: Abdomen is flat, non-distended. : Urine is clear. EENT: No signs and/or symptoms mb9 were reported regarding the EENT system. EENT: No signs and/or symptoms were reported regarding the EENT system. Derm: Skin is pink, warm \\T\\ dry. Musculoskeletal: Range of motion: intact in all extremities. 10:45 Reassessment: No changes from previously documented assessment. pt is AAOx4, mb9 respirations are even and unlabored. Rhythm is sinus bradycardia. Skin is warm, dry, and intact. 12:20 Reassessment: Patient is alert, oriented x 3, equal unlabored respirations, skin aa5 warm/dry/pink. Vital Signs: 09:29 Pulse 57; Resp 16; Temp 98.6; Pulse Ox 100% ; Weight 86.18 kg; Height 5 ft. 4 in. jh5 (162.56 cm); Pain 0/10; 10:00 BP 122 / 67; Pulse 52; Resp 16; Pulse Ox 99% on R/A; Pain 0/10; mb9 11:06 BP 135 / 75; Pulse 56; Resp 16; Pulse Ox 100% on R/A; Pain 0/10; mb9 12:13 BP 122 / 74; Pulse 58; Resp 16; Pulse Ox 100% on R/A; Pain 0/10; mb9 09:29 Body Mass Index 32.61 (86.18 kg, 162.56 cm) 5 ED Course: 09:02 Patient arrived in ED. mr 09:09 Saad Senior DO is Attending Physician. ms3 09:33 Triage completed. 5 09:33 Arm band placed on right wrist. jh5 09:33 Placed in gown. Bed in low position. Call light in reach. Side rails up X 1. mb9 09:38 Corina Ibrahim, RN is Primary Nurse. mb9 09:55 CT Head Brain wo Cont In Process Unspecified. EDMS 10:00 EKG done, by ED staff, reviewed by Saad Senior DO. mb9 10:00 Inserted saline lock: 20 gauge in right antecubital area, using aseptic technique. mb9 Blood collected. 10:13 CMP Sent. mb9 10:13 CBC with Diff Sent. mb9 10:18 CXR XRAY In Process Unspecified. EDMS 11:07 No provider procedures requiring assistance completed. mb9 11:45 Vernon Lerner MD is Referral Physician. ms3 12:20 IV discontinued, intact, bleeding controlled, No redness/swelling at site. Pressure aa5 dressing applied. Administered Medications: No medications were administered Medication: 11:07 VIS not applicable for this client. mb9 Outcome: 11:46 Discharge ordered by . ms3 12:20 Discharged to home via wheelchair, with family. aa5 12:20 Condition: stable 12:20 Instructed on discharge instructions, follow up and referral plans. Demonstrated understanding of instructions, follow-up care. 12:30 Patient left the ED. aa5 Signatures: Dispatcher [employer] [facility] Isak Corina BassettLisa, RN RN 5 Saad Senior DO DO ms3 Josie Paz RN RN 5 Corina Ibrahim RN RN mb9
--- NOTE | 2022-02-10 11:46 | EDPHYS ---
Physician Documentation [facility] Name: Pamela Machado Age: 86 yrs Sex: Female : 1935 Arrival Date: 02/10/2022 Time: 09:02 Bed 4 Private MD: ED Physician Saad Senior HPI: 02/10 09:34 This 86 yrs old Female presents to ER via Ambulatory with complaints of seeing colors ms3 and hearing a band. 09:34 The patient presents to the emergency department with Hearing a band playing, seeing ms3 colors. Onset: The symptoms/episode began/occurred 2 year(s) ago. Past psychiatric history: Prior diagnosis: no previous psychiatric diagnosis known. Associated signs and symptoms: Pertinent negatives: abdominal pain, chest pain, chills, depression, nausea, paranoia, vomiting. Severity of symptoms: At their worst the symptoms were mild in the emergency department the symptoms are unchanged Pain is currently a 0 / 10. Historical: - Allergies: 09:33 Codeine; 5 09:33 Demerol; 5 09:33 Novocain; jh5 09:33 Sulfa (Sulfonamide Antibiotics); jh5 09:33 zylocain; 5 - PMHx: 09:33 "heart rythm problem"; a fib; Diabetes - IDDM; Hypothyroidism; 5 - PSHx: 09:33 bunions; knee; hysterectomy; hernia; foot; jh5 - Immunization history:: Adult Immunizations up to date. - Social history:: Smoking status: Patient denies any tobacco usage or history of. ROS: 09:34 Constitutional: Negative for fever, and chills. Neck: Negative for injury, pain, and ms3 swelling, Cardiovascular: Negative for chest pain, and palpitations. Respiratory: Negative for shortness of breath, cough, wheezing, and pleuritic chest pain, Abdomen/GI: Negative for abdominal pain, nausea, vomiting, diarrhea, and constipation, MS/Extremity: Negative for injury and deformity, Skin: Negative for injury, rash, and discoloration. 09:34 Psych: Positive for Hearing a band; seeing colors. 09:34 All other systems are negative. Exam: 09:34 Constitutional: This is a well developed, well nourished patient who is awake, alert, ms3 and in no acute distress. Head/Face: Normocephalic, atraumatic. Neck: Trachea midline, no cervical lymphadenopathy. Supple, full range of motion without nuchal rigidity, or vertebral point tenderness. No Meningismus. Chest/axilla: Normal chest wall appearance and motion. Nontender with no deformity. Cardiovascular: Regular rate and rhythm with a normal S1 and S2. No gallops, murmurs, or rubs. Normal PMI, no JVD. No pulse deficits. Respiratory: Lungs have equal breath sounds bilaterally, clear to auscultation and percussion. No rales, rhonchi or wheezes noted. No increased work of breathing, no retractions or nasal flaring. Abdomen/GI: Soft, non-tender, with normal bowel sounds. No distension or tympany. No guarding or rebound. No evidence of tenderness throughout. Skin: Warm, dry with normal turgor. Normal color with no rashes, no lesions, and no evidence of cellulitis. MS/ Extremity: Pulses equal, no cyanosis. Neurovascular intact. Full, normal range of motion. Neuro: Awake and alert, GCS 15, oriented to person, place, time, and situation. Cranial nerves II-XII grossly intact. Motor strength 5/5 in all extremities. Sensory grossly intact. Cerebellar exam normal. Normal gait. 10:14 ECG was reviewed by the Attending Physician. ms3 Vital Signs: 09:29 Pulse 57; Resp 16; Temp 98.6; Pulse Ox 100% ; Weight 86.18 kg; Height 5 ft. 4 in. [facility] (162.56 cm); Pain 0/10; 10:00 BP 122 / 67; Pulse 52; Resp 16; Pulse Ox 99% on R/A; Pain 0/10; mb9 11:06 BP 135 / 75; Pulse 56; Resp 16; Pulse Ox 100% on R/A; Pain 0/10; mb9 12:13 BP 122 / 74; Pulse 58; Resp 16; Pulse Ox 100% on R/A; Pain 0/10; mb9 09:29 Body Mass Index 32.61 (86.18 kg, 162.56 cm) [facility] MDM: 09:32 Patient medically screened. ms3 09:34 Differential diagnosis: UTI vs Electrolyte abnormality vs Brain Tumor. ms3 11:43 ED course: Discussed case with Dr Lerner and he will follow patient up in clinic. ms3 patient may need EEG that can be done outpatient.. 11:49 Data reviewed: vital signs, nurses notes, lab test result(s), EKG, radiologic studies, ms3 and as a result, I will discharge patient. Counseling: I had a detailed discussion with the patient and/or guardian regarding: the historical points, exam findings, and any diagnostic results supporting the discharge/admit diagnosis, lab results, radiology results, the need for outpatient follow up, to return to the emergency department if symptoms worsen or persist or if there are any questions or concerns that arise at home. 11:49 ED course: Discussed labs, CT, chest x-ray, discussion with Dr. Lerner with patient msAnna and her son. Patient to follow-up Dr. Lerner in 2 to 3 days. Patient understands and agrees with plan. All questions were answered. Return precautions discussed include worsening symptoms, or any other concerns. On reevaluation patient is alert, in no apparent distress, nontoxic, speaking full sentences. 02/10 09:34 Order name: CBC with Diff; Complete Time: 10:31 ms3 02/10 09:34 Order name: CMP; Complete Time: 11:16 ms3 02/10 09:34 Order name: Urinalysis; Complete Time: 11:16 ms3 02/10 09:34 Order name: CXR XRAY; Complete Time: 10:31 ms3 02/10 09:34 Order name: CT Head Brain wo Cont; Complete Time: 10:31 ms3 02/10 10:43 Order name: Urine Dipstick-Ancillary; Complete Time: 11:16 EDMS 02/10 09:34 Order name: Urine Dipstick-Ancillary (obtain specimen); Complete Time: 11:59 ms3 02/10 09:34 Order name: EKG - Nurse/Tech; Complete Time: 10:13 ms3 02/10 09:39 Order name: IV Saline Lock; Complete Time: 10:13 mb9 EC:14 Rate is 46 beats/min. Rhythm is regular. Left axis deviation noted. NC interval is ms3 normal. QRS interval is normal. Clinical impression: Sinus bradycardia. Interpreted by me. Reviewed by me. Administered Medications: No medications were administered Disposition Summary: 02/10/22 11:46 Discharge Ordered Location: Home ms3 Condition: Stable ms3 Diagnosis - Other visual disturbances ms3 - Auditory hallucinations ms3 - Chronic kidney disease, unspecified ms3 Followup: ms3 - With: Vernon Lerner MD - When: 2 - 3 days - Reason: Recheck today's complaints Discharge Instructions: - Discharge Summary Sheet ms3 - Visual Disturbances ms3 Forms: - Medication Reconciliation Form ms3 - Thank You Letter ms3 - Antibiotic Education ms3 - Prescription Opioid Use ms3 Signatures: Dispatcher [employer] EDSaad Segura, DO ms3 Josie Paz, RN RN jh5 Corina Ibrahim RN RN mb9
[2022-02-10 12:53] VITALS: TEMP 98.6
[2022-02-10 12:56] VITALS: O2SAT 100
[2022-02-10 12:57] VITALS: BP 122/74
--- NOTE | 2022-02-12 08:09 | EKG ---
Test Date: 2022-02-10 Test Time: 09:57:28 Engineering Laboratory Technician: MB MEASUREMENT RESULTS: Intervals: Rate: 46 NE: QRSD: 120 QT: 496 QTc: 434 [place]: P: 71 NE: QRS: -15 T: 21 INTERPRETIVE STATEMENTS: Undetermined rhythm Right bundle branch block Abnormal ECG Compared to ECG 01/11/2017 18:49:33 Sinus rhythm no longer present First degree AV block no longer present Left-axis deviation no longer present Myocardial infarct finding no longer present Electronically Signed On 02-12-22 08:02:30 DIRECTOR [employer]ENCY by Jesus Downing
== END 2022-02-10 12:30 | disposition home or self-care (01) ==
LOC: ER 08:57
DX: H53.8 Other visual disturbances (principal); R44.0 Auditory hallucinations; E11.22 Type 2 diabetes mellitus with diabetic chronic kidney disease; N18.9 Chronic kidney disease, unspecified; I48.91 Unspecified atrial fibrillation; Z88.2 Allergy status to sulfonamides; Z88.5 Allergy status to narcotic agent
CPT/HCPCS: 36415; 70450; 71045; 80053; 81003; 85025; 93005; 99284

== ENCOUNTER 2022-10-24 11:20 | Emergency (ER) | payer OTHER ==
--- OUTSIDE RECORDS SUMMARY | 2022-10-24 11:23 | XMS REPORT | Continuity of Care Document ---
:[address] [facility] t Address [address] [facility] [address] [place] [address] Care Team Providers Name Role Phone Carlos Guzman MD Primary Care Physician [phone] William Banuelos Attending Clinician WILLIAM PEREIRA Attending [...] Added automatic ally from request for surgery [id number] No known No known Disease Unive rs active active ity of problems problems [facility] Allergies, Adverse Reactions, Alerts Allergy Allergy Status [...] Active Univers ALLERGIE Class ity of [facility] [place] [facility] [place] Social History Social Habit Start Date Stop Date Quantity Comments Source Exposure to Not sure [facility] SARS-CoV-2 (event) [place] [facility] History SDOH University o f Alcohol Std Drinks [place] [facility] History SDOH University o f Alcohol Binge [facility] al Branch Sexual orientation Method ist [facility] Gender identity [facility] Tobacco use and 2020-07-15 2020-07-15 Never used Universit y of exposure 00:00:00 00:00:00 [place] [facility] [place] History SDOH 2020-07-15 2020-07-15 1 University o f Alcohol Frequency 00:00:00 00:00:00 [facility] edical [place] Alcohol intake 2019-07-26 2019-07-26 Ex-drinker [facility] 00:00:[facility]:00 (finding) [facility] History of Social 2019-07-26 2019-07-[address] function 00:00:00 00:00:00 Hospital Sex Assigned At [birth year] [facility] Smoking Status Start Date Stop Date Source Unknown if ever smoked Universit y of [facility] Never smoker [facility] Medications Ordered Filled Start Stop Current Ordering Indication Dosage Frequency Signature Comments Components Source Medication Medication Date Date Medication? Clinician (SIG) Name Name triamcinolo 2020- No [id number] 80mg Univers ne 07-15 9100 ity of acetonide 23:15: 22:01 [place] (KENALOG) 00 :00 Medical injection Branch 80 mg triamcinolo 2020- No [id number] 80mg 80 mg, Univers ne 07-15 9100 Intra-jon ity of acetonide 23:15: 22:01 justice [place] (KENALOG) 00 :00 ONCE, 1 Medical injection dose, Mon Branc h 80 mg 07/15/20 at 1815, Routine HYDROcodone 2020- No 1{tbl} 1 tablet, Univers -acetaminop 5-11 05-11 Oral, ity of hen (NORCO 01:00: 00:07 ONCE, 1 Luis Armando as 5) 5-325 mg 00 :00 dose, Mon Med ical tablet 1 07/08/20 at [facility] h tablet 1999, SHIVANI levothyroxi Yes [...] TABLET BY ity o f 00:00: MOUTH 00 DAILY IF Medical NEEDED FOR Branch [...] BY ity of mg tablet 00:00: MOUTH [place] 00 EVERY DAY Medical WITH MEALS Branch metoprolol Yes TAKE 1 Unive rs tartrate 50 3-08 TABLET BY ity of mg tablet 00:00: MOUTH [place] 00 EVERY DAY Medical WITH MEALS Branch No known No No known Metho di medications 5-[address] 11:47: s [facility]osp[facility] 11 l meloxicam 2019-0 Yes [id number] 7.5mg Take 1 Univers 7.5 mg 4-05 tablet by ity of tablet 00:00: mouth once [place] 00 daily as Medical needed for Branch Pain (scale 7-10). meloxicam 2020-0 Yes [id number] 7.5mg Take 1 Univers 7.5 mg 4-05 tablet by ity of tablet 00:00: mouth once [place] 00 daily as Medical needed for Branch Pain (scale 7-10). meloxicam 2019-0 Yes [id number] 7.5mg Take 1 Univers 7.5 mg 4-05 tablet by ity of tablet 00:00: mouth once [place] 00 daily as Medical needed for Branch Pain (scale 7-10). meloxicam 2020-0 Yes [id number] 7.5mg Take 1 Univers 7.5 mg 4-05 tablet by ity of tablet 00:00: mouth once [place] 00 daily as Medical needed for Branch Pain (scale 7-10). meloxicam 2020-0 Yes [id number] 7.5mg Take 1 Univers 7.5 mg 4-05 tablet by ity of tablet 00:00: mouth once [place] 00 daily as Medical needed for Branch Pain (scale 7-10). meloxicam 2019-0 Yes [id number] 7.5mg Take 1 Univers 7.5 mg 4-05 tablet by ity of tablet 00:00: mouth once [place] 00 daily as Medical needed for Branch Pain (scale 7-10). Immunizations Ordered Immunization Filled Immunization Date Status Commen ts Source Name Name BEENA DAVISImelda 2020-04-11 Completed Methodis t MRNA VACCINATION 00:00:00 [facility] ERMIKEImelda 2020-04-11 Completed Methodis t MRNA VACCINATION 00:00:00 Located within [facility] RYANImelda 2020-04-11 Completed Methodis t MRNA VACCINATION 00:00:00 [facility] ERMIKEImelda 2020-03-14 Completed Methodis t MRNA VACCINATION 00:00:00 Located within [facility] COVID-19 2020-03-14 Completed Methodis t MRNA VACCINATION 00:00:00 Located within [facility] COVID19 2020-03-14 Completed Methodis t MRNA VACCINATION 00:00:00 Hospital Vital Signs Vital Name Observation Time Observation Value Comments Source Systolic blood 2020-07-15 21:10:00 170 mm[Hg] Univer sity of pressure [facility] Diastolic blood 2020-07-15 21:10:00 61 mm[Hg] Unive rsity of pressure [facility] Heart rate 2020-07-15 21:10:00 64 /min Universi ty of [facility] Body height 2020-07-15 21:02:00 160 cm Universi ty of [facility] Body weight 2020-07-15 21:02:00 70.308 kg Universi ty of [facility] BMI 2020-07-15 21:02:00 27.46 kg/m2 Universi ty of [facility] Systolic blood 2020-07-09 00:31:54 172 mm[Hg] Univer sity of [facility] Diastolic blood 2020-07-09 00:31:54 67 mm[Hg] Unive rsity of [facility] Heart rate 2020-07-09 00:31:54 63 /min Universi ty of [facility] Respiratory rate 2020-07-09 00:31:54 18 /min [facility] saturation in 2020-07-09 00:31:54 95 /min [facility] Arterial blood by [facility] Pulse oximetry Branch Body temperature 2020-07-08 22:03:00 36.11 Joanne Univ ersity of [facility] Body height 2020-07-08 22:03:00 160 cm Universi ty of [facility] Body weight 2020-07-08 22:03:00 70.308 kg Universi ty of [facility] BMI 2020-07-08 22:03:00 27.46 kg/m2 Universi ty of [facility] Branch Systolic blood 2019-06-04 23:55:00 153 mm[Hg] Univer sity of pressure [facility] Branch Diastolic blood 2019-06-04 23:55:00 60 mm[Hg] Unive rsity of pressure [facility] Heart rate 2019-06-04 23:55:00 60 /min [facility] Body temperature 2019-06-04 23:55:00 36.33 Joanne [facility] Respiratory rate 2019-06-04 23:55:00 17 /min [facility] Oxygen saturation in 2019-06-04 23:55:00 97 /min [facility] Arterial blood by [facility] Pulse oximetry Branch Body height 2019-06-04 22:22:00 160 cm [facility] Body weight 2019-06-04 22:22:00 70.308 kg [facility] BMI 2019-06-04 22:22:00 27.46 kg/m2 [facility] Procedures Procedure Date / Time Performed Performing Clinician [facility] e XR HIPS 3 VW 2020-07-08 23:25:46 Elizabeth Baker [place] [facility] [place] BILATERAL [facility] XR KNEE 3 VW RIGHT 2019-06-04 23:12:07 [facility] XR HIPS 2 VW RIGHT 2019-06-04 23:11:49 [facility] NOTICE OF PRIVACY 2019-06-04 22:09:24 Doctor Unassigned, No [facility] Plan of Care Planned Activity Planned Date Details Comments Source Future Scheduled 2022-10-23 SHINGLES VACCINES (1 Met [facility] Test 02:23:22 of 2) [code = SHINGLES VACCINES (1 of 2)] Future Scheduled 2022-10-23 65+ [facility] 02:23:22 VACCINE (1 - PCV) [code = 65+ PNEUMOCOCCAL VACCINE (1 - PCV)] Future Scheduled 2022-10-23 COVID-19 VACCINE (3 - [facility] Test 02:23:22 Moderna series) [code = COVID-19 VACCINE (3 - Moderna series)] Future Scheduled 2022-10-23 INFLUENZA VACCINE (#[facility]) [facility] Test 02:23:22 [code = INFLUENZA VACCINE (#1)] Future Scheduled 2022-06-05 SHINGLES VACCINES (1 Met [facility] Test 13:04:59 of 2) [code = SHINGLES VACCINES (1 of 2)] Future Scheduled 2022-06-05 65+ PNEUMOCOCCAL [facility] Test 13:04:59 VACCINE (1 - PCV) [code = 65+ PNEUMOCOCCAL VACCINE (1 - PCV)] Future Scheduled 2022-06-05 COVID-19 VACCINE (3 - Me [facility] Test 13:04:59 Booster for Moderna series) [code = COVID-19 VACCINE (3 - Booster for Moderna series)] Future Scheduled 2022-06-05 INFLUENZA VACCINE [facility] Test 13:04:59 [code = INFLUENZA VACCINE] Future Scheduled 2022-01-02 HEPATITIS B VACCINES Met [facility] Test 13:55:13 (1 of 3 - 3-dose series) [code = HEPATITIS B VACCINES (1 of 3 - 3-dose series)] Future Scheduled 2022-01-02 SHINGLES VACCINES (1 Met [facility] Test 13:55:13 of 2) [code = SHINGLES VACCINES (1 of 2)] Future Scheduled 2022-01-02 65+ [facility]AL [facility] Test 13:55:13 VACCINE (1 - PCV) [code = 65+ PNEUMOCOCCAL VACCINE (1 - PCV)] Future Scheduled 2022-01-02 COVID-19 VACCINE (3 - Me [facility] Test 13:55:13 Booster for Moderna series) [code = COVID-19 VACCINE (3 - Booster for Moderna series)] Future Scheduled 2022-01-02 INFLUENZA VACCINE Method [facility] Test 13:55:13 [code = INFLUENZA VACCINE] Encounters Start End Encounter Admission Attending Care Care Encounter Source Date/Time Date/Time Type Type Clinicians Facility Department ID 2020-07-31 2020-07-31 Telephone MARISSA Pereira [id number] Univers 00:00:00 00:00:00 [facility] 350..[id number] it y of Surgical [id number] Luis Armando as Specialti [id number] Id dical es 198 [facility] 2020-07-15 2020-07-15 Office MARISSA Pereira [id number] Univers 16:00:44 16:15:44 Visit [facility] [id number] it y of Surgical [id number] Luis Armando as Specialti [id number] Id dical es 198 [facility] 2020-07-15 2020-07-15 Outpatient Gela TAVIA [facility] [id number] Univers 15:45:00 15:45:00 WILLIAM mayo [facility] 2020-07-08 2020-07-08 [facility] [id number] Univers 16:56:00 19:36:00 Elizabeth Rika [id number] i k[place] red [place] [id number] [facility] [id number] [facility] 084 Branch 2020-07-08 2020-07-08 Emergency X SAMUEL, [facility] ERT [id number] Univers 16:56:00 16:56:00 ELIZABETH mayo [facility] 2020-04-11 2020-04-11 Outpatient [facility] [id number] [place] 00:00:00 00:00:00 126 Method i 2020-03-14 2020-03-14 Outpatient [facility] [id number] [place] 00:00:00 00:00:00 984 Method i 2019-07-26 2019-07-26 Outpatient INCAVO, [facility] [id number] [place] 00:00:00 00:00:00 DAVID 749 Method i 2019-06-22 2019-06-22 Outpatient INCAVO, [facility] [id number] [place] 00:00:00 00:00:00 DAVID 067 Method i 2019-06-14 2019-06-14 Outpatient INCAVO, [facility] [id number] [place] 00:00:00 00:00:00 DAVID 374 Method i 2019-06-14 2019-06-14 Outpatient INCAVO, [facility] [id number] [place] 00:00:00 00:00:00 DAVID 386 Method i 2019-06-14 2019-06-14 Outpatient INCAVO, [facility] [id number] [place] 00:00:00 00:00:00 DAVID 392 Method i 2019-06-14 2019-06-14 Outpatient INCAVO, [facility] [id number] [place] 00:00:00 00:00:00 DAVID 779 Method i 2019-06-04 2019-06-04 Emergency [facility] [id number] Univers 17:15:03 19:10:00 Viry Meléndez [id number] i ty [facility] [id number] [facility] [id number] [place] [id number] Branch 2019-06-04 2019-06-04 Emergency [facility] [id number] Univers 17:15:03 19:10:00 VIRY huber [facility] Results This patient has no known results.
[2022-10-24] MEDS ORDERED: NA CHLORIDE 0.9% 1,000 ML ONE (12:18)
--- NOTE | 2022-10-24 12:20 | RAD REPORT ---
EXAM DESCRIPTION: CT - Head Brain Wo Cont - 10/24/2022 12:02 pm CLINICAL HISTORY: DIZZINESS COMPARISON: Head Brain Wo Cont dated 06/13/2022; Head Brain Wo Cont dated 02/10/2022 TECHNIQUE: All CT scans are performed using dose optimization technique as appropriate and may inclu de automated exposure control or mA/KV adjustment according to patient size. FINDINGS: No intracranial hemorrhage, hydrocephalus or extra-axial fluid collection.No areas of brai n edema or evidence of midline shift. Cerebral atrophy. Mild chronic small vessel ischemic changes. Opacified right maxillary sinus which is chronic. Hyperdense contents within the right maxillary sinu s likely due to inspissated secretions. The calvarium is intact. IMPRESSION: No acute intracranial abnormality.
--- NOTE | 2022-10-24 12:53 | RAD REPORT ---
EXAM DESCRIPTION: RAD - Chest Single View - 10/24/2022 12:44 pm CLINICAL HISTORY: COUGH COMPARISON: Chest Single View dated 06/13/2022; Chest Single View dated 02/10/2022; Chest Single View dated 01/11/2017; CHEST PA AND LAT 2 VIEW dated 05/21/2009 FINDINGS: Lines: None. Lungs: No evidence of edema or pneumonia. Pleural: No significant pleural effusions or pneumothorax. Cardiac: The heart size is within normal limits. Mediastinum: Within normal limits. Bones: No acute fractures. Thoracolumbar curvature. Other: None IMPRESSION: No acute cardiopulmonary disease.
[2022-10-24 13:25] LABS: Absolute Lymphocytes (CBC) 1.7 K/uL (0.7-4.9); Hematocrit 39.5 % (36.0-45.0); Lymphocytes % 28.4 % (15.3-44.8); MCV 93.4 fL (80-100); MPV 8.3 fL (7.6-11.3); Platelets 172 thou/uL (152-406); RBC Red Blood Cell Count 4.23 M/uL (3.86-4.86)
[2022-10-24 13:28] LABS: Protime INR 1.03
[2022-10-24 13:46] LABS: Albumin 3.1 g/dL (3.4-5.0); Bilirubin Direct 0.1 mg/dL (0-0.2); Bilirubin Indirect, Calculated 0.3 mg/dL (0.2-0.8); Bilirubin Total 0.4 mg/dL (0.2-1.0); Magnesium 1.9 mg/dL (1.6-2.4); Troponin High Sensitivity 26.4 pg/mL (<58.9)
[2022-10-24 13:47] LABS: Specific Gravity 1.007 (1.005-1.030); Urine Bilirubin NEGATIVE (Negative); Urine Blood Negative (Negative); Urine Clarity Clear (Clear); Urine Color Colorless (Yellow); Urine Glucose NEGATIVE (Negative); Urine Protein NEGATIVE (Negative); Urine Urobilinogen Normal (Normal); Urine pH 6.5 (5.0-7.0)
--- NOTE | 2022-10-24 13:58 | ER ---
Nurse's Notes [facility] Name: Pamela Machado Age: 87 yrs Sex: Female : 1935 Arrival Date: 10/24/2022 Time: 11:20 Bed 18 Private MD: Diagnosis: Weakness;Dizziness and giddiness;Acute maxillary sinusitis, unspecified;History of falling;Fall on same level, unspecified;Unspecified kidney failure-chronic Presentation: 10/24 11:40 Chief complaint: Patient states: Weakness and dizziness worse than usual. Coronavirus ll1 screen: Vaccine status: Patient reports receiving the 2nd dose of the covid vaccine. Client denies travel out of the [place] in the last 14 days. At this time, the client does not indicate any symptoms associated with coronavirus-19. Ebola Screen: Patient denies travel to an Ebola-affected area in the 21 days before illness onset. No acute neurological deficit is noted. Initial Sepsis Screen: Does the patient meet any 2 criteria? No. Patient's initial sepsis screen is negative. Does the patient have a suspected source of infection? No. Patient's initial sepsis screen is negative. Risk Assessment: Do you want to hurt yourself or someone else? Patient reports no desire to harm self or others. Onset of symptoms was September 29, 2017. 11:40 Method Of Arrival: Wheelchair ll1 11:40 Acuity: ZAC 3 ll1 Triage Assessment: 12:30 General: Appears in no apparent distress. uncomfortable, Behavior is calm, cooperative, eh3 appropriate for age. Stroke Activation: Symptom onset > 6 hours Physician: Stroke Attending; Name: ; Notified At: ; Arrived At: Physician: Chief Stroke Resident; Name: ; Notified At: ; Arrived At: Physician: Stroke Resident; Name: ; Notified At: ; Arrived At: Physician: ED Attending; Name: ; Notified At: ; Arrived At: Physician: ED Resident; Name: ; Notified At: ; Arrived At: Historical: - Allergies: 11:42 Codeine; ll1 11:42 Cortisone; ll1 11:42 Demerol; ll1 11:42 Novocain; ll1 11:42 Sulfa (Sulfonamide Antibiotics); ll1 11:42 zylocain; ll1 - PMHx: 11:42 a fib; Hypothyroidism; Diabetes - IDDM; "heart rythm problem"; ll1 - PSHx: 11:42 bunions; Cholecystectomy; foot; hernia; hysterectomy; knee; ll1 - Immunization history:: Client reports receiving the 2nd dose of the Covid vaccine. - Social history:: Smoking status: Patient denies any tobacco usage or history of. Screenin:30 [facility] ED Fall Risk Assessment (Adult) Score/Fall Risk Level 0 - 2 = Low Risk. Abuse eh3 screen: Denies threats or abuse. Denies injuries from another. Nutritional screening: No deficits noted. Tuberculosis screening: No symptoms or risk factors identified. Assessment: 12:30 General: Appears in no apparent distress. uncomfortable, Behavior is calm, cooperative, eh3 appropriate for age. Pain: Denies pain. Neuro: Level of Consciousness is awake, alert, obeys commands, Oriented to person, place, time, situation. Cardiovascular: Capillary refill < 3 seconds Patient's skin is warm and dry. Respiratory: Airway is patent Respiratory effort is even, unlabored, Respiratory pattern is regular, symmetrical. GI: Abdomen is round non-distended. Derm: Skin is pink, warm \\T\\ dry. Musculoskeletal: Circulation, motion, and sensation intact. Vital Signs: 11:40 BP 166 / 70; Pulse 86; Resp 18; Temp 97.5; Pulse Ox 100% on R/A; Weight 58.97 kg; ll1 Height 5 ft. 3 in. ; Pain 7/10; 12:30 BP 139 / 66; Pulse 76; Resp 16; Pulse Ox 97% on R/A; eh3 11:40 Body Mass Index 23.03 (58.97 kg, 160.02 cm) ll1 11:40 Pain Scale: Adult ll1 ED Course: 11:22 Patient arrived in ED. rg4 11:35 Donavon Bernardo MD is Attending Physician. [facility] 11:42 Triage completed. ll1 11:43 Arm band placed on. ll1 11:46 Renee Mann, MARY ALICE is Primary Nurse. eh3 12:04 CT Head Brain wo Cont In Process Unspecified. EDMS 12:30 Patient has correct armband on for positive identification. Bed in low position. Call eh3 light in reach. Side rails up X2. Adult w/ patient. Provided Education on: use of call parry. Pulse ox on. NIBP on. 12:46 XRAY Chest (1 view) In Process Unspecified. EDMS 12:57 Inserted saline lock: 20 gauge in left antecubital area, using aseptic technique. Blood eh3 collected. 15:00 No provider procedures requiring assistance completed. IV discontinued, intact, eh3 bleeding controlled, No redness/swelling at site. Pressure dressing applied. Administered Medications: 13:12 Drug: NS 0.9% IV 1000 ml Route: IV; Rate: 1 bolus; Site: left antecubital; eh3 14:30 Follow up: IV Status: Completed infusion; IV Intake: 1000ml eh3 Medication: 15:00 VIS not applicable for this client. eh3 Intake: 14:30 IV: 1000ml; Total: 1000ml. eh3 Outcome: 13:58 Discharge ordered by . [facility] 15:00 Discharged to home via wheelchair, with family. 3 15:00 Condition: stable 15:00 Discharge instructions given to patient, Instructed on discharge instructions, follow up and referral plans. medication usage, Demonstrated understanding of instructions, follow-up care, medications, Prescriptions given X 1. 15:12 Patient left the ED. ll1 Signatures: Dispatcher [employer] EDIL Donavon Bernardo MD MD cha Garcia, Rubi rg4 Andrew Zazueta, RN RN ll1 Renee Mann, MARY ALICE RN 3 Corrections: (The following items were deleted from the chart) 20:53 15:00 Discharge instructions given to patient, Instructed on discharge instructions, eh3 follow up and referral plans. Demonstrated understanding of instructions, follow-up care, eh3
--- NOTE | 2022-10-24 13:58 | EDPHYS ---
Physician Documentation [facility] Name: Pamela Machado Age: 87 yrs Sex: Female : 1935 Arrival Date: 10/24/2022 Time: 11:20 Bed 18 Private MD: ED Physician Donavon Bernardo HPI: 10/24 13:46 This 87 yrs old Female presents to ER via Wheelchair with complaints of duke Weakness, Dizziness. 13:46 The patient presents to the emergency department with weakness of the entire body, duke generalized weakness. Historical: - Allergies: 11:42 Codeine; ll1 11:42 Cortisone; ll1 11:42 Demerol; ll1 11:42 Novocain; ll1 11:42 Sulfa (Sulfonamide Antibiotics); ll1 11:42 zylocain; ll1 - PMHx: 11:42 a fib; Hypothyroidism; Diabetes - IDDM; "heart rythm problem"; ll1 - PSHx: 11:42 bunions; Cholecystectomy; foot; hernia; hysterectomy; knee; ll1 - Immunization history:: Client reports receiving the 2nd dose of the Covid vaccine. - Social history:: Smoking status: Patient denies any tobacco usage or history of. ROS: 13:47 Constitutional: Negative for fever, chills, and weight loss, Eyes: Negative for injury, duke pain, redness, and discharge, ENT: Negative for injury, pain, and discharge, Neck: Negative for injury, pain, and swelling, Cardiovascular: Negative for chest pain, palpitations, and edema, Respiratory: Negative for shortness of breath, cough, wheezing, and pleuritic chest pain, Abdomen/GI: Negative for abdominal pain, nausea, vomiting, diarrhea, and constipation, Back: Negative for injury and pain, : Negative for injury, bleeding, discharge, and swelling, MS/Extremity: Negative for injury and deformity, Skin: Negative for injury, rash, and discoloration, Psych: Negative for depression, anxiety, suicide ideation, homicidal ideation, and hallucinations, Allergy/Immunology: Negative for hives, rash, and allergies, Endocrine: Negative for neck swelling, polydipsia, polyuria, polyphagia, and marked weight changes, Hematologic/Lymphatic: Negative for swollen nodes, abnormal bleeding, and unusual bruising. 13:47 Neuro: Positive for dizziness, weakness. Exam: 13:47 Constitutional: This is a well developed, well nourished patient who is awake, alert, duke and in no acute distress. Head/Face: Normocephalic, atraumatic. Eyes: Pupils equal round and reactive to light, extra-ocular motions intact. Lids and lashes normal. Conjunctiva and sclera are non-icteric and not injected. Cornea within normal limits. Periorbital areas with no swelling, redness, or edema. ENT: Nares patent. No nasal discharge, no septal abnormalities noted. Tympanic membranes are normal and external auditory canals are clear. Oropharynx with no redness, swelling, or masses, exudates, or evidence of obstruction, uvula midline. Mucous membranes moist. Neck: Trachea midline, no thyromegaly or masses palpated, and no cervical lymphadenopathy. Supple, full range of motion without nuchal rigidity, or vertebral point tenderness. No Meningismus. Chest/axilla: Normal chest wall appearance and motion. Nontender with no deformity. No lesions are appreciated. Cardiovascular: Regular rate and rhythm with a normal S1 and S2. No gallops, murmurs, or rubs. Normal PMI, no JVD. No pulse deficits. Respiratory: Lungs have equal breath sounds bilaterally, clear to auscultation and percussion. No rales, rhonchi or wheezes noted. No increased work of breathing, no retractions or nasal flaring. Abdomen/GI: Soft, non-tender, with normal bowel sounds. No distension or tympany. No guarding or rebound. No evidence of tenderness throughout. Back: No spinal tenderness. No costovertebral tenderness. Full range of motion. Skin: Warm, dry with normal turgor. Normal color with no rashes, no lesions, and no evidence of cellulitis. MS/ Extremity: Pulses equal, no cyanosis. Neurovascular intact. Full, normal range of motion. Neuro: Awake and alert, GCS 15, oriented to person, place, time, and situation. Cranial nerves II-XII grossly intact. Motor strength 5/5 in all extremities. Sensory grossly intact. Cerebellar exam normal. Normal gait. Psych: Awake, alert, with orientation to person, place and time. Behavior, mood, and affect are within normal limits. 13:47 ECG was reviewed by the Attending Physician. Vital Signs: 11:40 BP 166 / 70; Pulse 86; Resp 18; Temp 97.5; Pulse Ox 100% on R/A; Weight 58.97 kg; ll1 Height 5 ft. 3 in. ; Pain 7/10; 12:30 BP 139 / 66; Pulse 76; Resp 16; Pulse Ox 97% on R/A; eh3 11:40 Body Mass Index 23.03 (58.97 kg, 160.02 cm) ll1 11:40 Pain Scale: Adult ll1 MDM: 11:35 Patient medically screened. duke 14:03 Differential Diagnosis altered mental status. Differential diagnosis: cardiac duke arrhythmia, CVA, generalized weakness, GI bleed, hypovolemia, idiopathic dizziness, near-syncope. Data reviewed: vital signs, nurses notes, lab test result(s), EKG, radiologic studies, CT scan, plain films. Consideration of Admission/Observation Escalation of care including admission/observation considered. I considered the following discharge prescriptions or medication management in the emergency department Medications were administered in the Emergency Department. See MAR. Test considered but Not performed: Ultrasound no carotid usg. Care significantly affected by the following chronic conditions: Diabetes, a fib, hypothyroid. 14:05 Independent interpretation of the following test(s) in the Emergency Department EKG: duke See my EKG interpretation above. 10/24 11:43 Order name: Basic Metabolic Panel; Complete Time: 14:03 [facility] 10/24 11:43 Order name: CBC with Diff; Complete Time: 13:44 [facility] 10/24 11:43 Order name: LFT's; Complete Time: 14:03 [facility] 10/24 11:43 Order name: Magnesium; Complete Time: 14:03 [facility] 10/24 11:43 Order name: NT PRO-BNP; Complete Time: 14:03 [facility] 10/24 11:43 Order name: PT-INR; Complete Time: 13:44 [facility] 10/24 11:43 Order name: Troponin HS; Complete Time: 14:03 [facility] 10/24 11:43 Order name: Lipase; Complete Time: 14:03 [facility] 10/24 11:43 Order name: Urinalysis w/ reflexes; Complete Time: 14:03 [facility] 10/24 11:43 Order name: Blood Culture Adult (2) [facility] 10/24 11:43 Order name: Lactate w/ 2H reflex if indic.; Complete Time: 13:44 [facility] 10/24 11:43 Order name: XRAY Chest (1 view); Complete Time: 13:44 [facility] 10/24 11:43 Order name: CT Head Brain wo Cont; Complete Time: 13:44 [facility] 10/24 11:43 Order name: EKG; Complete Time: 11:44 [facility] 10/24 11:43 Order name: Cardiac monitoring; Complete Time: 11:46 [facility] 10/24 11:43 Order name: EKG - Nurse/Tech; Complete Time: 11:54 [facility] 10/24 11:43 Order name: IV Saline Lock; Complete Time: 13:25 [facility] 10/24 11:43 Order name: Labs collected and sent; Complete Time: 13:25 [facility] 10/24 11:43 Order name: O2 Per Protocol; Complete Time: 11:46 [facility] 10/24 11:43 Order name: O2 Sat Monitoring; Complete Time: :46 [facility] EC:47 Rate is 75 beats/min. Rhythm is regular. QRS [place] is Normal. PA interval is normal. QRS duke interval is normal. QT interval is normal. No Q waves. T waves are Normal. No ST changes noted. Clinical impression: NSR w/ Non-specific ST/T Changes and No evidence of ischemia. Interpreted by me. Reviewed by me. Administered Medications: 13:12 Drug: NS 0.9% IV 1000 ml Route: IV; Rate: 1 bolus; Site: left antecubital; 3 14:30 Follow up: IV Status: Completed infusion; IV Intake: 1000ml eh3 Disposition Summary: 10/24/22 13:58 Discharge Ordered Location: Home duke Problem: new duke Symptoms: have improved duke Condition: Stable duke Diagnosis - Weakness duke - Dizziness and giddiness duke - Acute maxillary sinusitis, unspecified duke - History of falling duke - Fall on same level, unspecified duke - Unspecified kidney failure - chronic duke Followup: duke - With: Private Physician - When: 2 - 3 days - Reason: Recheck today's complaints, Continuance of care, Re-evaluation by your physician Discharge Instructions: - Discharge Summary Sheet duke - Dizziness duke - Sinusitis, Adult duke - Weakness duke - Sinusitis, Adult, [id number] duke - Weakness, [id number]-[id number] duke - Chronic Kidney Disease, Adult, [id number] duke Forms: - Medication Reconciliation Form duke - Thank You Letter duke - Antibiotic Education duke - Prescription Opioid Use duke - Patient Portal Instructions duke - Leadership Thank You Letter duke Prescriptions: - Augmentin 500-125 mg Oral Tablet - take 1 tablet by ORAL route every 8 hours for 10 days; 30 tablet; Refills: 0, duke Product Selection Permitted Signatures: Dispatcher [employer] Donavon Selby, Andrew Arthur MD, cha, RN RN ll1 Renee Mann RN RN eh3
[2022-10-24 15:27] VITALS: BP 166/70; TEMP 97.5; O2SAT 100
--- NOTE | 2022-10-25 15:07 | EKG ---
Test Date: 2022-10-24 Test Time: 11:52:42 Roll Up Helper: MICHELA MEASUREMENT RESULTS: Intervals: Rate: 75 AR: 280 QRSD: 124 QT: 422 QTc: 471 [place]: P: 72 AR: 280 QRS: -59 T: 49 INTERPRETIVE STATEMENTS: Sinus rhythm with 1st degree AV block Right bundle branch block Left anterior fascicular block Bifascicular block Septal infarct, age undetermined Abnormal ECG Compared to ECG 06/13/2022 10:13:21 First degree AV block now present Atrial fibrillation no longer present Bifascicular block still present Myocardial infarct finding still present Electronically Signed On 10-25-22 15:05:14 CDT by Dimas Vasquez
== END 2022-10-24 15:12 | disposition home or self-care (01) ==
LOC: ER 11:20
DX: R53.1 Weakness (principal); R42 Dizziness and giddiness; J01.00 Acute maxillary sinusitis, unspecified; E11.22 Type 2 diabetes mellitus with diabetic chronic kidney disease; N18.9 Chronic kidney disease, unspecified; W18.30XA Fall on same level, unspecified, initial encounter; Z91.81 History of falling; Z88.2 Allergy status to sulfonamides; Z88.5 Allergy status to narcotic agent; Z88.8 Allergy status to other drugs, medicaments and biological substances
CPT/HCPCS: 93005; 87040 ×2; 85025; 80048; 36415; 83735; 85610; 80076; 83605; 81003; 84484; 83690; 83880; 70450; 71045; 96360; 99284; J7030